=== PATIENT | female | born 1995 | race Caucasian/White ===

== ENCOUNTER 2021-09-07 22:16 | Observation (INO) | payer BC ==
[~2021-09-07] VITALS: Ht 165.1 cm; Wt 108.9 kg
[~2021-09-07 22:16] MED LIST: ALDOMET 250MG250 MG PO; PRENATAL1 TA1 PO
[2021-09-07] MEDS ORDERED: INDERAL LA 80MG80 MG PO (22:24)
[2021-09-07] MEDS ORDERED: ADIPEX-P37.5 MG PO (22:24)
[2021-09-07 22:39] LABS: BASO # 0.1 K/mm3 (0.0-0.2); BASO % 0.3 % (0.0-2.0); EOS # 0.1 K/mm3 (0.0-0.7); EOS % 0.4 % (0.0-4.0); GRAN # 11.9 K/mm3 (1.4-6.5); HEMATOCRIT 36.2 % (37.0-47.0); HEMOGLOBIN 12.3 g/dl (12.5-16.0); LYMPH # 2.8 K/mm3 (1.2-3.4); LYMPH % 18.1 % (20.0-51.0); MEAN CELL VOLUME 89 fl (80.0-100.0); MEAN CORPUSCULAR HEMOGLOBIN 30 pg (27-31); MEAN CORPUSCULAR HGB CONC 34 g/dl (33.0-37.0); MEAN PLATELET VOLUME 9.8 fl (7.4-10.4); MONO # 0.8 K/mm3 (0.1-0.6); MONO % 4.8 % (1.7-9.3); PLATELET COUNT 333 K/mm3 (130-400); RED BLOOD COUNT 4.08 M/mm3 (4.10-5.30); REDCELL DISTRIBUTION WIDTH-CV 12.8 % (11.5-14.5)
[2021-09-07 23:09] LABS: ALBUMIN 4.3 gm/dL (3.5-5.0); BILIRUBIN,TOTAL 0.6 mg/dL (0.2-1.2); CALCIUM 9.7 mg/dL (8.4-10.2); POTASSIUM 4.3 mmol/L (3.5-4.5); TOTAL PROTEIN 8.2 gm/dL (6.2-8.1)
[2021-09-08 00:02] LABS: COLLECTION METHOD CLEAN CATCH
[2021-09-08 00:08] LABS: PH 6 (5-8); SQUAMOUS EPITHELIAL 0-2 /hpf (0-10); URINE APPEARANCE Clear (CLEAR/HAZY); URINE BACTERIA None Seen /hpf (NONE SEEN); URINE BILIRUBIN Negative (NEGATIVE); URINE BLOOD 1+ (NEGATIVE); URINE COLOR Straw (YELLOW); URINE GLUCOSE Negative (NEGATIVE); URINE KETONE Negative (NEGATIVE); URINE LEUKOCYTE ESTERASE Negative (NEGATIVE); URINE NITRATE Negative (NEGATIVE); URINE PROTEIN(semi-quant) Negative (NEGATIVE); URINE RBC 0-2 /hpf (0-2); URINE UROBILINOGEN Negative (NEGATIVE)
[2021-09-08 04:00] VITALS: BP 104/48; PULSE 70; TEMP 98.1
--- NOTE | 2021-09-08 05:30 | NUR ---
PT ARRIVED TO THE MEDICAL FLOOR AROUND 0300HRS TO RM [id number]. PT A&O X 4; VSS; O2 RA. PT DENIED CHEST PAIN, GENERAL PAIN, N,V,D, SOB OR DIZZINESS. ADMISSIONS ASSESSMENT AND MED REC COMPLETE. PT ORIENTED TO ROOM AND HOSPITAL POLICY. POC DISCUSSED WITH PT. PT VERBALIZED UNDERSTANDING. ALL QUESTIONS AND CONCERNS ADDRESSED. PT EXPRESSED NO OTHER NEEDS AT THIS TIME. CALL LIGHT WITHIN REACH.
[2021-09-08 07:19] VITALS: BP 118/59; PULSE 67; TEMP 98
--- NOTE | 2021-09-08 08:36 | NUR ---
Pt assessment complete. Pt laying in bed upon entry, she is A/O x4. Her breathing is even and unlabored on RA. Pt denies SOB. She currently reports abdominal pain /, denies need for any pain intervention. Pt denies any N/V. Denies having any loose stools. IVF infusing without issues. Remains NPO until further assessment by Dr. Swenson. Call light within reach.
[2021-09-08 11:32] VITALS: BP 114/59; PULSE 65; TEMP 98
--- NOTE | 2021-09-08 12:51 | NUR ---
stopped by but nothing needed at this time.
--- NOTE | 2021-09-08 14:55 | NUR ---
[employer] attempted to meet with patient to complete discharge plan. Patient sleeping upon entry and this sw was unable to arouse. Will try again at a later time
[2021-09-08 15:40] VITALS: BP 108/56; PULSE 69; TEMP 98
--- NOTE | 2021-09-08 16:39 | NUR ---
Pt tolerating PO without issues. IVF stopped and pt INT.
--- NOTE | 2021-09-08 19:00 | NUR ---
No pain, N/V through the day. Tolerating PO intake without issues.
[2021-09-08 20:24] VITALS: BP 104/60; PULSE 62; TEMP 97.9
[2021-09-09 00:01] VITALS: BP 110/52; PULSE 110; PULSE 80; TEMP 97.6
[2021-09-09 03:29] VITALS: BP 91/45; PULSE 67; TEMP 98
--- NOTE | 2021-09-09 05:45 | NUR ---
ASSESSMENT COMPLETE FOR THIS SHIFT. PT SITTING UP IN BED, LEGS AG-CROSSED, WORKING ON HER LAPTOP. PT DENIED PAIN, PALPITATIONS, SOB, N,V,D OR DIZZINESS. PT STATED SHE FEELS GREAT AND IS TOLERATING CLEAR LIQUIDS WELL (IN SO MANY WORDS) AND WOULD REALLY LIKE SOME REAL FOOD, BECAUSE SHE'S HUNGRY! PT EXPRESSED NO OTHER NEEDS AT THIS TIME. CALL LIGHT WITHIN REACH.
[2021-09-09 06:42] LABS: HEMOGLOBIN 10.9 g/dl (12.5-16.0); MEAN CELL VOLUME 87 fl (80.0-100.0); MEAN CORPUSCULAR HEMOGLOBIN 29 pg (27-31); MEAN CORPUSCULAR HGB CONC 34 g/dl (33.0-37.0); MEAN PLATELET VOLUME 9.9 fl (7.4-10.4); PLATELET COUNT 246 K/mm3 (130-400); RED BLOOD COUNT 3.72 M/mm3 (4.10-5.30)
[2021-09-09 06:43] LABS: HEMATOCRIT 32.5 % (37.0-47.0)
[2021-09-09 07:10] LABS: ALBUMIN 3.7 gm/dL (3.5-5.0); BILIRUBIN,TOTAL 0.6 mg/dL (0.2-1.2); CREATININE, serum 0.76 mg/dL (0.57-1.11); POTASSIUM 3.9 mmol/L (3.5-4.5)
[2021-09-09 08:05] VITALS: BP 123/64; PULSE 66; TEMP 98.2
--- NOTE | 2021-09-09 09:15 | NUR ---
PT SITTING UP IN BED. STATES THAT SHE IS NOT HAVING ANY PAIN OR N/V AT THIS TIME. "I AM READY TO GO HOME." PT STATES NO NEEDS AT THIS TIME. CALL [facility] IS WITHIN REACH.
--- NOTE | 2021-09-09 10:58 | NUR ---
SW met with patient to complete intake. Patient states that she lives in [place] alone. Next of kin is her mother Daphne Ashraf [phone]. Patient states that she does not utilize DME and is independent with ADL's. PCP is Dr. Lang, pharmacy is [facility]. Patient states that she does not have anyone appointed as DPOA-HC and does not wish to appoint anyone at this time. Patient plans to return to her come in [place] up [place], has no questions or concerns with doing so. SW will continue to follow. DC plan: home
== END 2021-09-09 12:51 | disposition home or self-care (01) ==
LOC: COL.ER 22:16 → MEDICAL 09-08 01:46 → EDBEDREQ 09-08 02:06 → MEDICAL 09-09 12:51
PROVIDERS: Emergency Medicine; ADMIT Surgery
DX: K85.90 Acute pancreatitis without necrosis or infection, unspecified (principal)
CPT/HCPCS: G0378; J2543; J7120; Q9967